=== PATIENT | male | born 1980 | race Caucasian/White ===

== ENCOUNTER 2020-01-06 08:24 | Emergency (ER) | payer OTHER ==
[~2020-01-06] VITALS: Ht 182.9 cm; Wt 97.5 kg
[2020-01-06] MEDS ORDERED: CLONAZEPAM0.5 MG (08:50)
== END 2020-01-06 12:33 | disposition home or self-care (01) ==
LOC: ER 08:24
DX: S42.251A Displaced fracture of greater tuberosity of right humerus, initial encounter for closed fracture (principal); S50.11XA Contusion of right forearm, initial encounter; W05.1XXA Fall from non-moving nonmotorized scooter, initial encounter; Y93.89 Activity, other specified; Y92.89 Other specified places as the place of occurrence of the external cause; Y99.8 Other external cause status

== ENCOUNTER 2020-06-04 06:45 | Day surgery (SDC) | payer OTHER ==
[~2020-06-04 06:45] MED LIST: CLONAZEPAM0.5 MG; TYLENOL325 MG PO
== END 2020-06-04 16:35 | disposition home or self-care (01) ==
LOC: CIR.AMB 06:45 → ADM 08:00 → CIR.AMB 16:35
PROVIDERS: ATTEND Orthopaedic Surgery Hand Surgery
DX: S63.642A Sprain of metacarpophalangeal joint of left thumb, initial encounter (principal); Z20.828 Contact with and (suspected) exposure to other viral communicable diseases